=== PATIENT | male | born 1995 | race Caucasian/White ===

== ENCOUNTER 2023-03-05 20:48 | Emergency (ER) | payer OTHER ==
[~2023-03-05] VITALS: Ht 170.2 cm; Wt 54.4 kg
[2023-03-05 20:58] VITALS: BP_SYST 118; PULSE 70; RESP 18; TEMP 99.1; O2SAT 100
[2023-03-05 21:10] VITALS: BP_SYST 118; PULSE 70; RESP 18; TEMP 99.1; O2SAT 100
== END 2023-03-05 21:10 | disposition home or self-care (01) ==
LOC: SED 20:48
DX: Z02.89 Encounter for other administrative examinations (principal); J45.909 Unspecified asthma, uncomplicated; R06.02 Shortness of breath; Z79.899 Other long term (current) drug therapy
CPT/HCPCS: 99283